=== PATIENT | female | born 1945 | race Caucasian/White ===

== ENCOUNTER → 2018-06-16 | Outpatient (CLI) | payer MEDICARE, OTHER ==
[~2018-06-16] MED LIST: ACET325; FOLI1 PO; METTREX2.5 PO; MOMENI; NAPR220; Prilosec Otc20 MG; ZYRTEC10 M1; [UNRECOGNIZED DRUG - OTHER]
== END ==
LOC: LAB SHORT 17:40 → LAB 17:40
DX: N39.41 Urge incontinence (principal)
CPT/HCPCS: 87086

== ENCOUNTER → 2021-04-19 | Outpatient (CLI) | payer MEDICARE, OTHER ==
[2021-04-20 08:10] LABS: Candida species (DNA Probe) Negative (NEGATIVE); G. vaginalis (DNA Probe) Negative (NEGATIVE); T. vaginalis (DNA Probe) Negative (NEGATIVE)
== END | disposition home or self-care (01) ==
LOC: LAB 14:50 → LAB SHORT 14:50
PROVIDERS: Registered Nurse
DX: R82.90 Unspecified abnormal findings in urine (principal)
CPT/HCPCS: 87480; 87510; 87660

== ENCOUNTER → 2021-07-25 | Outpatient (CLI) | payer MEDICARE, OTHER | END | disposition home or self-care (01) | LOC: LAB SHORT 10:56 | DX: L30.8 Other specified dermatitis (principal); R58 Hemorrhage, not elsewhere classified | CPT/HCPCS: 88305; 88312; 88313 ==

== ENCOUNTER → 2021-11-08 | Outpatient (CLI) | payer MEDICARE, OTHER ==
[2021-11-08 17:46] LABS: Source, Urine Voided
[2021-11-08 20:28] LABS: Appearance, Urine Clear (Clear); Bilirubin, Urine Neg (Neg); Blood, Urine Neg (Neg); Color, Urine Yellow (P-Yellow); Glucose Qualitative, Urine Neg (Neg); Ketones, Urine Neg (Neg); Leukocyte Esterase, Urine 1+ (Neg); Nitrite, Urine Neg (Neg); Protein, Urine Neg (Neg); Specific Gravity, Urine 1.015 (1.003-1.022); Urobilinogen, Urine NORM (Normal)
[2021-11-08 20:39] LABS: Red Blood Cells, Urine 0-2 /hpf (0-2)
[2021-11-08 20:40] LABS: Bacteria Few /hpf; Squamous Epithelial Cells Rare /hpf (Few)
== END | disposition home or self-care (01) ==
LOC: LAB SHORT 12:00
PROVIDERS: Registered Nurse
DX: N39.41 Urge incontinence (principal); N89.8 Other specified noninflammatory disorders of vagina
CPT/HCPCS: 81001; 87086